=== PATIENT | female | born 1995 | race African-American/Black ===

== ENCOUNTER 2016-11-20 20:17 | Emergency (ER) | payer MEDICAID, OTHER ==
[~2016-11-20] VITALS: Ht 175.3 cm; Wt 61.2 kg
--- NOTE | 2016-11-20 21:15 | NUR ---
Pt to room c/o lump to right breast for 1 mo. Pt seen by MD. Pt stable for discharge per MD. Pt given ACI. Pt verbalized understanding of dc instructions. Pt ambulated out of er with steady gait.
[2016-11-20 21:34] VITALS: BP 107/60
== END 2016-11-20 21:15 | disposition home or self-care (01) ==
LOC: ER 20:18
DX: N60.01 Solitary cyst of right breast (principal)
CPT/HCPCS: A4663

== ENCOUNTER 2019-09-14 01:36 | Emergency (ER) | payer MEDICAID ==
[~2019-09-14] VITALS: Ht 175.3 cm; Wt 55.3 kg
--- NOTE | 2019-09-14 01:53 | NUR ---
Patient presents to ER with c/o of n/v x 3 days. Patient is alert and oriented x 4, Placed in bed 2A, gowned. Patient noted to have emesis x 1, clear in color. Patient denies abdominal pain. Dr. Damico at bedside examining patient.
[2019-09-14] MEDS ORDERED: IV D5/ 0.9% NACL 1,000 ML IV ONE (02:00)
[2019-09-14] MEDS ORDERED: ONDANSETRON 4 MG/2 ML VIAL IV ONE ×2 (02:00→02:45)
[2019-09-14] MEDS ORDERED: ONDANSETRON 4 MG/2 ML VIAL ONE ×2 (02:09→02:50)
--- NOTE | 2019-09-14 02:30 | NUR ---
Provided water for po challenge.
--- NOTE | 2019-09-14 02:35 | NUR ---
Patient stated that she could not tolerate the water and that "it made my stomach hurt." Dr. Damico made aware.
--- NOTE | 2019-09-14 02:38 | NUR ---
pt c/o of still feeling nauseous. Dr. Damico made aware.
--- NOTE | 2019-09-14 03:20 | NUR ---
Encourage patient to take sips of water.
--- NOTE | 2019-09-14 03:24 | NUR ---
Pt stated she was able to tolerate a sip of water without vomitting. Dr. Damico made aware. Patient laying in [facility]. No acute distress noted.
--- NOTE | 2019-09-14 03:34 | NUR ---
Per Dr. Damico, patient is stable for discharge. DC instructions and prescriptions given and reviewed with patient. Verbalized understanding. IV DC'd, noted with tip intact. Left ER in stable condition.
[2019-09-14 03:37] VITALS: BP 126/84
== END 2019-09-14 03:34 | disposition home or self-care (01) ==
LOC: ER 01:39
DX: R11.2 Nausea with vomiting, unspecified (principal)
CPT/HCPCS: 96374; 96375; 99283; J2405 ×2; J7042; A4663